=== PATIENT | female | born 1930 | race Caucasian/White ===

== ENCOUNTER 2020-07-24 09:35 | Emergency (ER) | payer MEDICARE ==
[~2020-07-24] VITALS: Ht 162.6 cm; Wt 74.8 kg
[2020-07-24 09:40] VITALS: BP_SYST 183
--- NOTE | 2020-07-24 09:40 | NUR ---
Patient to ER bed 1 to gown for evaluation. Side rails up.
--- NOTE | 2020-07-24 09:45 | NUR ---
Pt bib EMS from home with c/o syncope x1 during breakfast. Reports h/o syncope but no diagnosis. Bradycardia on EKG, 40-50bpm. V/S stable, pt is afebrile. Currently resting in bed, will continue to monitor.
--- NOTE | 2020-07-24 09:51 | NUR ---
ER Dr. Padilla at bedside examining patient.
[2020-07-24] MEDS ORDERED: ONDANSETRON HCL 4 MG/2 ML VIAL IVP ONE (10:00)
--- NOTE | 2020-07-24 10:00 | NUR ---
Lab at bedside for blood draw.
--- NOTE | 2020-07-24 10:05 | NUR ---
Radiology at bedside for CXR
[2020-07-24 10:29] LABS: ANION GAP 7 (5-15); CALCIUM 8.3 mg/dL (8.4-11.0); CHLORIDE 100 mmol/L (98-107); CREATININE 1.23 mg/dL (0.55-1.30); GLUCOSE 116 mg/dL (70-99); POTASSIUM 3.8 mmol/L (3.5-5.1); SODIUM SERUM 132 mmol/L (136-145); UREA NITROGEN, BLOOD 23 mg/dL (8-21)
[2020-07-24 10:35] LABS: BASOPHILS # (AUTO) 0.1 K/uL (0.0-0.2); BASOPHILS % (AUTO) 2.1 % (0.0-2.0); EOSINOPHILS # (AUTO) 0.2 K/uL (0.0-0.4); EOSINOPHILS % (AUTO) 3.2 % (0.0-4.0); HEMATOCRIT 33.3 % (36-48); HEMOGLOBIN 11.1 g/dL (12.0-16.0); LYMPHOCYTES # (AUTO) 1.1 K/uL (1.0-5.5); LYMPHOCYTES % (AUTO) 15.3 % (20.5-51.5); MEAN CORPUSCULAR HEMOGLOBIN 31 pg (27-31); MEAN CORPUSCULAR HGB CONC 34 % (32-36); MEAN CORPUSCULAR VOLUME 92 fL (79.0-98.0); MONOCYTES # (AUTO) 0.5 K/uL (0.0-1.0); MONOCYTES % (AUTO) 6.3 % (1.7-9.3); NEUTROPHILS # (AUTO) 5.2 K/uL (1.8-7.7); NEUTROPHILS % (AUTO) 73.1 % (40.0-70.0); PLATELET COUNT (AUTO) 268 K/uL (130-430); RED BLOOD CELL COUNT(AUTO) 3.63 MIL/uL (4.2-6.2); RED CELL DISTRIBUTION WIDTH 15.1 % (9.0-15.0); WHITE BLOOD COUNT (AUTO) 7.2 K/uL (4.8-10.8)
[2020-07-24 10:43] LABS: ALANINE AMINOTRANSFERASE 14 U/L (12-78); ALBUMIN 2.8 g/dL (3.4-4.8); ASPARTATE AMINOTRANSFERASE 15 U/L (10-37); TOTAL BILIRUBIN 0.6 mg/dL (0.0-1.0)
--- NOTE | 2020-07-24 11:36 | NUR ---
[facility]. RAMIREZ, [facility], CALLED BACK TO SPEAK TO DR. ESPARZA REGARDING PT STATUS
--- NOTE | 2020-07-24 13:01 | NUR ---
Franco [facility], would like updates when pt is transfered. Addendum: 07/24/20 at 1304 by [email or web address] Tavon Gamez [phone]
--- NOTE | 2020-07-24 13:03 | NUR ---
TRANSFER INFO [facility] ER DR. KELLY ALS ETA 1400 SPOKE TO COLTEN
--- NOTE | 2020-07-24 13:32 | NUR ---
Spoke to BELEM Levine at [facility] requested updated vitals.
[2020-07-24 14:00] VITALS: BP_SYST 152
--- NOTE | 2020-07-24 14:03 | NUR ---
Patient to be transferred to [facility]. Is being transferred due to higher level of care. Receiving facility has accepting physician and available space. ER physician has signed transfer form. Patient or responsible republican has agreed to transfer and signed form. Patient belongings inventoried and will be sent with patient. Copy of nursing notes, lab reports, EKG, Physicians Orders and X-rays to be sent with patient. Report called to Ritchie at receiving facility. Receiving physician is Dr. Guerrero. [facility] ambulance service has been called for transfer. ETA is 1400.
== END 2020-07-24 14:03 | disposition short-term general hospital (02) ==
LOC: SED 09:35
DX: R55 Syncope and collapse (principal); I48.91 Unspecified atrial fibrillation; Z88.0 Allergy status to penicillin
CPT/HCPCS: 36415; 71045; 80053; 82550; 83880; 84484; 85025; 93005; 96374; 99285; J2405

== ENCOUNTER 2021-01-18 10:03 | Emergency (ER) | payer MEDICARE, SELFPAY ==
[~2021-01-18] VITALS: Ht 152.4 cm; Wt 72.6 kg
[2021-01-18 10:03] VITALS: BP_SYST 141
--- NOTE | 2021-01-18 10:03 | NUR ---
BROUGHT IN BY [facility], PLACED IN BED #2 AND TRIAGED. REPORT GIVEN TO ELVIA
--- NOTE | 2021-01-18 10:05 | NUR ---
INITIAL: PATIENT AOX4, FRIENDLY AND COOPERATIVE TO SPEAK WITH, NO ACUTE DISTRESS NOTED. DENIES PAIN AND OR DISCOMFORT. PLACED INTO GOWN. BED LOW AND LOCKED FOR SAFETY. PATIENT STATES, "I FAINT ALL THE TIME AND THEY DONT KNOW WHY".
--- NOTE | 2021-01-18 10:29 | NUR ---
ER at bedside examining patient.
--- NOTE | 2021-01-18 10:32 | NUR ---
EKG: EKG OBTAINED AND GIVEN TO
--- NOTE | 2021-01-18 10:49 | NUR ---
LAB AT BEDSIDE: BLOOD DRAW BEING COMPLETED, PT TOLERATING WELL.
[2021-01-18 11:15] LABS: BASOPHILS # (AUTO) 0.1 K/uL (0.0-0.2); BASOPHILS % (AUTO) 1.1 % (0.0-2.0); EOSINOPHILS # (AUTO) 0.1 K/uL (0.0-0.4); EOSINOPHILS % (AUTO) 0.8 % (0.0-4.0); HEMATOCRIT 36.2 % (36-48); LYMPHOCYTES # (AUTO) 1.5 K/uL (1.0-5.5); LYMPHOCYTES % (AUTO) 16.3 % (20.5-51.5); MEAN CORPUSCULAR HEMOGLOBIN 30 pg (27-31); MEAN CORPUSCULAR HGB CONC 33 % (32-36); MEAN CORPUSCULAR VOLUME 92 fL (79.0-98.0); MONOCYTES # (AUTO) 0.6 K/uL (0.0-1.0); MONOCYTES % (AUTO) 6.6 % (1.7-9.3); NEUTROPHILS # (AUTO) 7.1 K/uL (1.8-7.7); NEUTROPHILS % (AUTO) 75.2 % (40.0-70.0); PLATELET COUNT (AUTO) 244 K/uL (130-430); RED BLOOD CELL COUNT(AUTO) 3.95 MIL/uL (4.2-6.2); RED CELL DISTRIBUTION WIDTH 15.7 % (9.0-15.0); WHITE BLOOD COUNT (AUTO) 9.5 K/uL (4.8-10.8)
[2021-01-18 11:19] LABS: ANION GAP 8 (5-15); CALCIUM 8.6 mg/dL (8.4-11.0); CHLORIDE 100 mmol/L (98-107); CREATININE 1.51 mg/dL (0.55-1.30); GLUCOSE 120 mg/dL (70-99); POTASSIUM 4.1 mmol/L (3.5-5.1); SODIUM SERUM 134 mmol/L (136-145); UREA NITROGEN, BLOOD 40 mg/dL (8-21)
[2021-01-18 11:25] LABS: ALANINE AMINOTRANSFERASE 17 U/L (12-78); ALBUMIN 3.1 g/dL (3.4-4.8); ASPARTATE AMINOTRANSFERASE 15 U/L (10-37); TOTAL BILIRUBIN 0.6 mg/dL (0.0-1.0)
--- NOTE | 2021-01-18 12:02 | NUR ---
RESTING QUIETLY, NO CHANGES
[2021-01-18 12:15] LABS: BILIRUBIN,URINE NEGATIVE (NEGATIVE); BLOOD, URINE NEGATIVE (NEGATIVE); CLARITY/URINE CLEAR (CLEAR); COLOR,URINE YELLOW (YELLOW); GLUCOSE,URINE NEGATIVE (NEGATIVE); KETONES,URINE NEGATIVE (NEGATIVE); LEUKOCYTE ESTERASE ,URINE TRACE (NEGATIVE); NITRITE, URINE NEGATIVE (NEGATIVE); PH,URINE 5.5 (5.0-8.0); PROTEIN URINE NEGATIVE (NEGATIVE); UROBILINOGEN,URINE 0.2 (0.2-1.0)
--- NOTE | 2021-01-18 12:20 | NUR ---
PT RESTING WELL, STABLE AND ALERT.
[2021-01-18 12:25] LABS: BACTERIA,URINE FEW /HPF (None Seen); RBC,URINE 0-3 /HPF (0-3)
--- NOTE | 2021-01-18 13:10 | NUR ---
Dr. West, [facility], called back to speak to Dr. Bagley regarding pt status.
--- NOTE | 2021-01-18 13:51 | NUR ---
PT SLEEPING QUIETLY, NO CHANGES
--- NOTE | 2021-01-18 14:23 | NUR ---
BELEM Saeed spoke to Tavon, patients son regarding pt transfer to [facility]. Family is aware.
--- NOTE | 2021-01-18 14:30 | NUR ---
ASSISTED WITH BEDPAIN.
--- NOTE | 2021-01-18 14:54 | NUR ---
TRANSFER INFO [facility] Carl Araujo [phone] ALS ETA 1545 (Jonathan Chung) Spoke to Eb
--- NOTE | 2021-01-18 15:48 | NUR ---
TRANSPORT HERE FOR TRANSPORT TO [facility], REPORT GIVEN TO MEDICS
--- NOTE | 2021-01-18 15:52 | NUR ---
Patient to be transferred to [facility]. Is being transferred due to higher level of care. Receiving facility has accepting physician and available space. ER physician has signed transfer form. Patient or responsible green party has agreed to transfer and signed form. Patient belongings inventoried and will be sent with patient. Copy of nursing notes, lab reports, EKG, Physicians Orders and X-rays to be sent with patient. Report called to COURTNEY at receiving facility. Receiving physician is DR WICK. [facility] service has been called for transfer. ETA is NOW.
[2021-01-18 15:54] VITALS: BP_SYST 137
== END 2021-01-18 15:52 | disposition admitted as inpatient to this hospital (09) ==
LOC: SED 10:03
DX: R55 Syncope and collapse (principal); I48.91 Unspecified atrial fibrillation; E03.9 Hypothyroidism, unspecified; Z88.0 Allergy status to penicillin; Z20.822 Contact with and (suspected) exposure to COVID-19
CPT/HCPCS: 36415; 71045; 80053; 81000; 83605; 85025; 87040-TC; 93005; 99285